=== PATIENT | female | born 1945 | race Caucasian/White ===

== ENCOUNTER 2017-03-05 12:14 | Emergency (ER) | payer OTHER ==
[~2017-03-05] VITALS: Ht 157.5 cm; Wt 84.8 kg
[~2017-03-05 12:14] MED LIST: Bactrim,Septra DS 80 PO; CARVEDILOL25 MG PO; Coreg PO; DIGOXIN125 MCG PO; GEMFIBROZIL600 MG PO; LANOXIN,DIGI0.125 MG PO; LISINOPRIL10 MG PO; Lanoxin,Digitek PO; Lopid PO; PRADAXA150 MG PO; Pradaxa PO; SIMVASTATIN80 MG PO; TRIFLURIDINE 1% LEFT EYE; Tylenol Regular Stre PO; Vicodin,Norco 5/325 PO; WARFARIN SODIUM2 MG PO; ZESTRIL,PRINIVI10 M1 PO; ZESTRIL,PRINIVI10 MG PO; Zestril,Prinivil PO
[2017-03-05 16:58] VITALS: BP 118/71
== END 2017-03-05 16:59 | disposition home or self-care (01) ==
LOC: EME 12:14
DX: R51 Headache (principal); E11.9 Type 2 diabetes mellitus without complications; E78.5 Hyperlipidemia, unspecified; I10 Essential (primary) hypertension; F17.200 Nicotine dependence, unspecified, uncomplicated; Z85.3 Personal history of malignant neoplasm of breast; Z90.12 Acquired absence of left breast and nipple; Z88.0 Allergy status to penicillin; Z88.6 Allergy status to analgesic agent
CPT/HCPCS: 70450; 99281; 99284; J1885

== ENCOUNTER 2017-06-08 20:20 | Observation (INO) | payer OTHER ==
[~2017-06-08] VITALS: Ht 157.5 cm; Wt 88.7 kg
[2017-06-08 21:52] LABS: HEMATOCRIT 38.1 % (36.0-46.0); HEMOGLOBIN 12.6 G/DL (11.9-15.5); MCH 31.8 PG (29.0-34.0); MCHC 33.1 G/DL (30.0-36.0); MCV 96.2 FL (83-99); PLATELET COUNT 218 K/uL (156-360); RBC DIS.WIDTH-CV 12.5 % (11.8-14.6); RBC DIS.WIDTH-SD 44.8 % (39-53); RED BLOOD COUNT 3.96 M/uL (3.80-5.20); WHITE BLOOD COUNT 5.9 K/uL (4.1-10.2)
[2017-06-08 22:00] LABS: ALBUMIN 3.7 g/dL (3.2-4.8); CHLORIDE 104 mEq/L (99-109); POTASSIUM 4.1 mEq/L (3.7-5.4); SODIUM 140 mEq/L (136-147)
[2017-06-08 22:02] LABS: GLUCOSE 103 mg/dL (70-99)
[2017-06-08 22:03] LABS: TOTAL PROTEIN 7.3 g/dL (6.4-8.3)
[2017-06-08 22:04] LABS: TOTAL BILIRUBIN 0.3 mg/dL (0.0-1.0)
[2017-06-08 22:06] LABS: ALKALINE PHOSPHATASE 62 IU/L (3-129); CREATININE 0.8 mg/dL (0.6-1.3); GFR ESTIMATE (CALCULATED) > 59 mL/min/
[2017-06-08 22:07] LABS: UREA NITROGEN (BUN) 31 mg/dL (9-23)
[2017-06-08 22:08] LABS: AST (GOT) 16 IU/L (2-34)
[2017-06-08 22:09] LABS: ALT (GPT) 11 IU/L (3-49)
[2017-06-08 22:13] LABS: TROP-I INTERPRETATION NEGATIVE; TROPONIN-I 0.02 ng/mL (0.0-0.30)
[2017-06-08] MEDS ORDERED: COREG12.5 M1 PO (23:07)
[2017-06-08] MEDS ORDERED: PRINIVIL5 MG PO (23:08)
[2017-06-08] MEDS ORDERED: ZOVIRAX400 MG PO (23:08)
[2017-06-08] MEDS ORDERED: TYLENOL EXTRA500 MG PO (23:09)
[2017-06-09 02:40] LABS: HDL CHOLESTEROL 82 MG/DL (Desirable>=50); LDL CHOLESTEROL 88 mg/dL (Desirable<100); NON-HDL CHOLESTEROL 101 mg/dL (Desirable<160); TOTAL CHOLESTEROL 183 mg/dL (Desirable<200); TRIGLYCERIDES 67 MG/DL (Normal: <150)
[2017-06-09 02:49] VITALS: BP 139/94
[2017-06-09 04:22] VITALS: BP 157/76
[2017-06-09 06:11] LABS: TROP-I INTERPRETATION NEGATIVE; TROPONIN-I 0.01 ng/mL (0.0-0.30)
[2017-06-09 08:28] VITALS: BP 141/70
[2017-06-09 10:39] LABS: TROP-I INTERPRETATION NEGATIVE; TROPONIN-I 0.02 ng/mL (0.0-0.30)
== END 2017-06-09 12:53 | disposition home or self-care (01) ==
LOC: EME → EDBD 20:20 → EME 20:20 → EDOF 06-09 01:32 → ENRESERV 06-09 01:34 → 5WEST 06-09 02:33
PROVIDERS: Emergency Medicine; Physician Assistant
DX: R07.9 Chest pain, unspecified (principal); I48.2 Chronic atrial fibrillation; I10 Essential (primary) hypertension; Z87.11 Personal history of peptic ulcer disease; Z85.3 Personal history of malignant neoplasm of breast; E78.5 Hyperlipidemia, unspecified; I51.7 Cardiomegaly; F17.210 Nicotine dependence, cigarettes, uncomplicated; Z79.01 Long term (current) use of anticoagulants; Z96.653 Presence of artificial knee joint, bilateral; Z88.0 Allergy status to penicillin; Z88.5 Allergy status to narcotic agent; Z88.8 Allergy status to other drugs, medicaments and biological substances; Z90.12 Acquired absence of left breast and nipple; Z80.3 Family history of malignant neoplasm of breast
CPT/HCPCS: 71010; 80053; 80061; 84484; 85027; 93005; 99281; 99285; G0378

== ENCOUNTER 2017-08-27 15:15 | Observation (INO) | payer OTHER ==
[~2017-08-27] VITALS: Ht 157.5 cm; Wt 86.7 kg
[~2017-08-27 15:15] MED LIST changes: +COREG12.5 M1 PO; +PRINIVIL5 MG PO; +TYLENOL EXTRA500 MG PO; +ZOVIRAX400 MG PO
[2017-08-27 16:08] LABS: BASOPHIL (%) 0.7 % (0-1); EOSINOPHIL (%) 1.3 % (0-5); HEMOGLOBIN 12.2 G/DL (11.9-15.5); IMMATURE GRANULOCYTE (%) 0.3 % (0.0-0.7); LYMPHOCYTE (%) 30.6 % (15-42); LYMPHOCYTE COUNT 0.9 K/uL (1.0-2.8); MCV 94.1 FL (83-99); MONOCYTE (%) 16.4 % (3-12); MONOCYTE COUNT 0.5 K/uL (0-0.8); NEUTROPHIL (%) 50.7 % (45-76); NEUTROPHIL COUNT 1.5 K/uL (1.8-6.4); PLATELET COUNT 185 K/uL (156-360); RBC DIS.WIDTH-CV 12.5 % (11.8-14.6); RBC DIS.WIDTH-SD 43.3 % (39-53); RED BLOOD COUNT 3.93 M/uL (3.80-5.20)
[2017-08-27 16:13] LABS: INTER. NORMALIZED RATIO 1.3
[2017-08-27 16:16] LABS: PTT 58.9 SEC (25-37)
[2017-08-27 16:21] LABS: ALBUMIN 3.6 g/dL (3.2-4.8)
[2017-08-27 16:22] LABS: CHLORIDE 107 mEq/L (99-109); POTASSIUM 3.8 mEq/L (3.7-5.4); SODIUM 137 mEq/L (136-147)
[2017-08-27 16:24] LABS: GLUCOSE 148 mg/dL (70-99); TOTAL PROTEIN 6.7 g/dL (6.4-8.3)
[2017-08-27 16:26] LABS: TOTAL BILIRUBIN 0.2 mg/dL (0.0-1.0)
[2017-08-27 16:28] LABS: ALKALINE PHOSPHATASE 51 IU/L (3-129); CREATININE 0.9 mg/dL (0.6-1.3); GFR ESTIMATE (CALCULATED) > 59 mL/min/
[2017-08-27 16:29] LABS: AST (GOT) 29 IU/L (2-34); UREA NITROGEN (BUN) 33 mg/dL (9-23)
[2017-08-27 16:31] LABS: ALT (GPT) 17 IU/L (3-49)
[2017-08-27 19:41] LABS: APPEARANCE CLEAR ((CLEAR)); BILIRUBIN NEGATIVE; BLOOD MODERATE; COLOR YELLOW ((YELLOW)); GLUCOSE (STRIP) NEGATIVE; KETONES NEGATIVE; LEUKOCYTES NEGATIVE; NITRITE NEGATIVE; PROTEIN (STRIP) NEGATIVE; SPECIFIC GRAVITY 1.043 (1.000-1.030); UROBILINOGEN 0.2 MG/DL (0.2-1.0)
[2017-08-27 19:56] LABS: BACTERIA NONE SEEN /HPF; EPITHELIAL CELLS RARE /HPF; MUCUS TRACE /LPF; RED BLOOD CELLS 0-5 /HPF (0-5); UCUL ADDED? NO; WHITE BLOOD CELLS 0-5 /HPF (0-5)
[2017-08-27 21:57] LABS: HEMATOCRIT 37.7 % (36.0-46.0); HEMOGLOBIN 12.2 G/DL (11.9-15.5); MCV 94.3 FL (83-99)
[2017-08-27 23:10] LABS: DIGOXIN 0.5 ng/mL (0.8-2.0)
[2017-08-27 23:26] VITALS: BP 129/87
[2017-08-28] VITALS (7 sets, daily range): BP systolic 106–158; BP diastolic 56–75
[2017-08-28 00:41] LABS: HEMATOCRIT 38.7 % (36.0-46.0); HEMOGLOBIN 12.7 G/DL (11.9-15.5); MCV 94.9 FL (83-99)
[2017-08-28 05:28] LABS: BASOPHIL (%) 0.6 % (0-1); EOSINOPHIL (%) 2.8 % (0-5); EOSINOPHIL COUNT 0.1 K/uL (0-0.3); HEMATOCRIT 35.4 % (36.0-46.0); HEMOGLOBIN 11.6 G/DL (11.9-15.5); LYMPHOCYTE (%) 24.9 % (15-42); LYMPHOCYTE COUNT 0.9 K/uL (1.0-2.8); MCH 30.9 PG (29.0-34.0); MCHC 32.8 G/DL (30.0-36.0); MCV 94.1 FL (83-99); MONOCYTE (%) 15.3 % (3-12); MONOCYTE COUNT 0.5 K/uL (0-0.8); NEUTROPHIL (%) 56.4 % (45-76); PLATELET COUNT 163 K/uL (156-360); RBC DIS.WIDTH-CV 12.4 % (11.8-14.6); RED BLOOD COUNT 3.76 M/uL (3.80-5.20); WHITE BLOOD COUNT 3.5 K/uL (4.1-10.2)
[2017-08-28 05:55] LABS: CHLORIDE 105 MEQ/L (99-109); CREATININE 0.6 MG/DL (0.6-1.3); GFR ESTIMATE (CALCULATED) > 59 mL/min/; POTASSIUM 3.8 MEQ/L (3.7-5.4); SODIUM 138 MEQ/L (136-147); UREA NITROGEN (BUN) 20 mg/dL (9-23)
[2017-08-28 05:58] LABS: GLUCOSE 81 mg/dL (70-99)
[2017-08-28 12:13] LABS: HEMATOCRIT 36.6 % (36.0-46.0); HEMOGLOBIN 11.9 G/DL (11.9-15.5); MCV 93.6 FL (83-99)
[2017-08-28 15:53] LABS: HEMATOCRIT 38.5 % (36.0-46.0); HEMOGLOBIN 12.5 G/DL (11.9-15.5); MCV 93.7 FL (83-99)
[2017-08-28 20:12] LABS: HEMATOCRIT 36.3 % (36.0-46.0); HEMOGLOBIN 12.4 G/DL (11.9-15.5); MCV 92.1 FL (83-99)
[2017-08-29 03:27] VITALS: BP 111/58
[2017-08-29 06:31] LABS: BASOPHIL (%) 0.4 % (0-1); EOSINOPHIL (%) 1.1 % (0-5); HEMATOCRIT 36.2 % (36.0-46.0); HEMOGLOBIN 11.9 G/DL (11.9-15.5); IMMATURE GRANULOCYTE (%) 0.4 % (0.0-0.7); LYMPHOCYTE (%) 31.8 % (15-42); LYMPHOCYTE COUNT 0.8 K/uL (1.0-2.8); MCH 30.6 PG (29.0-34.0); MCHC 32.9 G/DL (30.0-36.0); MCV 93.1 FL (83-99); MONOCYTE (%) 15.7 % (3-12); MONOCYTE COUNT 0.4 K/uL (0-0.8); NEUTROPHIL (%) 50.6 % (45-76); NEUTROPHIL COUNT 1.3 K/uL (1.8-6.4); PLATELET COUNT 143 K/uL (156-360); RBC DIS.WIDTH-CV 12.5 % (11.8-14.6); RBC DIS.WIDTH-SD 42.7 % (39-53); RED BLOOD COUNT 3.89 M/uL (3.80-5.20); WHITE BLOOD COUNT 2.6 K/uL (4.1-10.2)
[2017-08-29 06:51] LABS: CHLORIDE 107 MEQ/L (99-109); CREATININE 0.7 MG/DL (0.6-1.3); GFR ESTIMATE (CALCULATED) > 59 mL/min/; GLUCOSE 79 mg/dL (70-99); POTASSIUM 3.8 MEQ/L (3.7-5.4); SODIUM 140 MEQ/L (136-147); UREA NITROGEN (BUN) 12 mg/dL (9-23)
[2017-08-29 07:47] VITALS: BP 117/57
[2017-08-29] MEDS ORDERED: PANTOPRAZOLE SO40 MG PO (12:32)
[2017-08-29] MEDS ORDERED: CIPRO500 MG PO (12:33)
[2017-08-29] MEDS ORDERED: FLAGYL500 MG PO (12:33)
[2017-08-29] MEDS ORDERED: PROBIOTIC250 MG PO (12:33)
[2017-08-29 12:36] VITALS: BP 130/62
== END 2017-08-29 15:31 | disposition home or self-care (01) ==
LOC: EME 15:15 → EDOF 21:38 → 5WEST 21:38 → ENRESERV 21:55 → 5WEST 23:14 → ENPENDDIS 08-29 12:35 → 5WEST 08-29 15:31
PROVIDERS: Hospitalist; Internal Medicine; Physician Assistant
DX: K52.9 Noninfective gastroenteritis and colitis, unspecified (principal); I95.9 Hypotension, unspecified; E86.0 Dehydration; I48.2 Chronic atrial fibrillation; Z79.01 Long term (current) use of anticoagulants; Z87.11 Personal history of peptic ulcer disease; B00.9 Herpesviral infection, unspecified; I10 Essential (primary) hypertension; E78.5 Hyperlipidemia, unspecified; Z85.3 Personal history of malignant neoplasm of breast; H91.90 Unspecified hearing loss, unspecified ear; F17.210 Nicotine dependence, cigarettes, uncomplicated; N28.1 Cyst of kidney, acquired; Z96.653 Presence of artificial knee joint, bilateral; Z90.12 Acquired absence of left breast and nipple; Z82.49 Family history of ischemic heart disease and other diseases of the circulatory system; Z88.0 Allergy status to penicillin; Z88.5 Allergy status to narcotic agent; Z88.8 Allergy status to other drugs, medicaments and biological substances
CPT/HCPCS: 74177; 80048; 80053; 80162; 81003; 83605; 85014; 85018; 85025; 85610; 85730; 86850; 86900; 86901; 99281; 99285; C9113; G0378; J0744; J7030; S0030

== ENCOUNTER 2017-09-03 22:09 | Observation (INO) | payer OTHER ==
[~2017-09-03] VITALS: Ht 157.5 cm; Wt 84.3 kg
[~2017-09-03 22:09] MED LIST changes: +CIPRO500 MG PO; +FLAGYL500 MG PO; +PANTOPRAZOLE SO40 MG PO; +PROBIOTIC250 MG PO
[2017-09-03 22:32] LABS: BASOPHIL (%) 0.3 % (0-1); EOSINOPHIL (%) 1.2 % (0-5); EOSINOPHIL COUNT 0.1 K/uL (0-0.3); HEMATOCRIT 36.4 % (36.0-46.0); HEMOGLOBIN 12.3 G/DL (11.9-15.5); IMMATURE GRANULOCYTE (%) 0.2 % (0.0-0.7); LYMPHOCYTE COUNT 1.7 K/uL (1.0-2.8); MCH 31.1 PG (29.0-34.0); MCHC 33.8 G/DL (30.0-36.0); MCV 91.9 FL (83-99); MONOCYTE (%) 11.2 % (3-12); MONOCYTE COUNT 0.7 K/uL (0-0.8); NEUTROPHIL (%) 61.1 % (45-76); RBC DIS.WIDTH-CV 12.4 % (11.8-14.6); RBC DIS.WIDTH-SD 42.3 % (39-53); RED BLOOD COUNT 3.96 M/uL (3.80-5.20); WHITE BLOOD COUNT 6.5 K/uL (4.1-10.2)
[2017-09-03 22:33] LABS: PLATELET COUNT 222 K/uL (156-360)
[2017-09-03 22:41] LABS: INTER. NORMALIZED RATIO 1.3
[2017-09-03 22:42] LABS: AMYLASE 33 IU/L (1-118); CHLORIDE 106 mEq/L (99-109); POTASSIUM 3.7 mEq/L (3.7-5.4); SODIUM 139 mEq/L (136-147)
[2017-09-03 22:44] LABS: GLUCOSE 186 mg/dL (70-99); PTT 26.3 SEC (25-37)
[2017-09-03 22:47] LABS: SERUM ETHYL ALCOHOL < 10 mg/dL
[2017-09-03 22:48] LABS: CREATININE 0.8 mg/dL (0.6-1.3); GFR ESTIMATE (CALCULATED) > 59 mL/min/
[2017-09-03 22:49] LABS: UREA NITROGEN (BUN) 17 mg/dL (9-23)
[2017-09-03 22:51] LABS: LIPASE 26 U/L (1.0-51.0)
[2017-09-03 22:57] LABS: TROP-I INTERPRETATION NEGATIVE; TROPONIN-I 0.01 ng/mL (0.0-0.30)
[2017-09-03] MEDS ORDERED: PRED FORTE100 DROP/5 LEFT EYE (23:29)
[2017-09-03] MEDS ORDERED: PROCTOCREAM-HC30 GM PR (23:30)
[2017-09-03] MEDS ORDERED: PROAIR HFA8.5 GM IH (23:31)
[2017-09-03] MEDS ORDERED: FLAGYL500 MG PO (23:33)
[2017-09-03] MEDS ORDERED: CIPRO500 MG PO (23:33)
[2017-09-03] MEDS ORDERED: PROTONIX40 MG PO (23:33)
[2017-09-03] MEDS ORDERED: FLORASTOR250 MG PO (23:34)
[2017-09-04] VITALS (7 sets, daily range): BP systolic 106–129; BP diastolic 67–83
[2017-09-04 04:36] LABS: HDL CHOLESTEROL 48 MG/DL (Desirable>=50); LDL CHOLESTEROL 50 mg/dL (Desirable<100); NON-HDL CHOLESTEROL 76 mg/dL (Desirable<160); TOTAL CHOLESTEROL 124 mg/dL (Desirable<200); TRIGLYCERIDES 132 MG/DL (Normal: <150)
[2017-09-04 06:32] LABS: HEMATOCRIT 39.1 % (36.0-46.0); HEMOGLOBIN 12.8 G/DL (11.9-15.5); MCHC 32.7 G/DL (30.0-36.0); MCV 91.6 FL (83-99); RBC DIS.WIDTH-CV 12.6 % (11.8-14.6); RBC DIS.WIDTH-SD 42.5 % (39-53); RED BLOOD COUNT 4.27 M/uL (3.80-5.20); WHITE BLOOD COUNT 6.5 K/uL (4.1-10.2)
[2017-09-04 06:52] LABS: TROP-I INTERPRETATION NEGATIVE; TROPONIN-I 0.02 ng/mL (0.0-0.30)
[2017-09-04 08:05] LABS: PLATELET CLUMPS PRESENT - PLATELET COUNT APPEARS ADQ.
[2017-09-04 08:14] LABS: PLATELET COUNT UNABLE TO REPORT K/uL (156-360)
[2017-09-04 12:50] LABS: TROP-I INTERPRETATION NEGATIVE; TROPONIN-I 0.01 ng/mL (0.0-0.30)
[2017-09-05 04:00] VITALS: BP 127/75
[2017-09-05 06:16] LABS: HEMATOCRIT 36.7 % (36.0-46.0); HEMOGLOBIN 12.1 G/DL (11.9-15.5); MCH 30.7 PG (29.0-34.0); MCV 93.1 FL (83-99); PLATELET COUNT 226 K/uL (156-360); RBC DIS.WIDTH-CV 12.5 % (11.8-14.6); RBC DIS.WIDTH-SD 42.8 % (39-53); RED BLOOD COUNT 3.94 M/uL (3.80-5.20); WHITE BLOOD COUNT 5.2 K/uL (4.1-10.2)
[2017-09-05 07:27] VITALS: BP 110/67
[2017-09-05 10:54] LABS: HEMOGLOBIN A1c (GLYCOHEMOGLOB) 5.7 % (Below 5.7)
[2017-09-05 11:29] VITALS: BP 117/57
[2017-09-05] MEDS ORDERED: ATORVASTATIN CA40 MG PO (13:32)
[2017-09-05] MEDS ORDERED: PRADAXA150 MG PO (13:32)
[2017-09-05] MEDS ORDERED: ASPIR-LOW81 MG PO (13:32)
== END 2017-09-05 16:35 | disposition home or self-care (01) ==
LOC: EME → EDOF 09-04 00:22 → 5SOUTH 09-04 00:22 → ENRESERV 09-04 00:25 → 5SOUTH 09-04 01:25
PROVIDERS: Emergency Medicine; Hospitalist; Internal Medicine; Physician Assistant Medical
DX: I63.9 Cerebral infarction, unspecified (principal); R47.81 Slurred speech; R26.89 Other abnormalities of gait and mobility; R53.1 Weakness; E78.5 Hyperlipidemia, unspecified; R41.82 Altered mental status, unspecified; I51.7 Cardiomegaly; Z85.3 Personal history of malignant neoplasm of breast; E11.9 Type 2 diabetes mellitus without complications; F17.210 Nicotine dependence, cigarettes, uncomplicated; I10 Essential (primary) hypertension; I48.1 Persistent atrial fibrillation; I48.2 Chronic atrial fibrillation; I65.22 Occlusion and stenosis of left carotid artery; K21.9 Gastro-esophageal reflux disease without esophagitis; Z79.01 Long term (current) use of anticoagulants; Z87.11 Personal history of peptic ulcer disease; Z88.0 Allergy status to penicillin; Z88.5 Allergy status to narcotic agent; Z90.12 Acquired absence of left breast and nipple; Z96.653 Presence of artificial knee joint, bilateral
CPT/HCPCS: 36415; 70450; 70496; 70498; 70551; 80047; 80048; 80061; 81003; 82150; 82270; 82272; 83036; 83690; 84450; 84460; 84484; 85025; 85027; 85610; 85730; 86850; 86900; 86901; 93005; 99281; 99285; G0378; G0480; J1644